=== PATIENT | female | born 1970 | race Caucasian/White ===

== ENCOUNTER 2019-06-24 17:03 | Emergency (ER) | payer OTHER ==
[~2019-06-24] VITALS: Ht 172.7 cm; Wt 83.5 kg
--- NOTE | ~2019-06-24 | EKG ---
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
[2019-06-24] MEDS ORDERED: LISINOPRIL-HCT1 EACH PO (17:32)
[2019-06-24] MEDS ORDERED: ADIPEX-P37.5 MG PO (17:32)
[2019-06-24] MEDS ORDERED: RIZATRIPTAN5 MG PO (17:32)
[2019-06-24] MEDS ORDERED: VITAMIN D22000 UNIT PO (17:32)
[2019-06-24 18:03] LABS: INFLUENZA A ANTIGEN Negative (Negative); INFLUENZA B ANTIGEN Negative (Negative)
[2019-06-24 19:30] LABS: ABSOLUTE BASOPHILS 0.1 thou/uL (0.0-0.2); ABSOLUTE EOSINOPHILS 0.1 thou/uL (0.0-0.7); ABSOLUTE LYMPHOCYTES 1.8 thou/uL (0.8-5.3); ABSOLUTE MONOCYTES 0.6 thou/uL (0.0-1.2); ABSOLUTE NEUTROPHILS 4.1 thou/uL (1.6-8.1); BASOPHILS 1.2 %; EOSINOPHILS 0.9 %; HEMATOCRIT 38.1 % (37.0-47.0); HEMOGLOBIN 12.8 gm/dL (12.0-15.0); MCHC 33.7 g/dL (28.0-37.0); MCV 89.1 fL (80.0-100.0); MONOCYTES 8.5 %; MPV 7.1 fl. (7.2-11.1); NUCLEATED RBCS 0 /100WBC; PLATELET COUNT* 324 thou/uL (150-400); POLYS 62.4 %; RBC 4.28 mil/uL (4.20-5.00); RDW-CV 13.7 % (10.5-14.5); WBC 6.6 thou/uL (4.0-11.0)
[2019-06-24 19:36] LABS: CALCIUM 9.2 mg/dL (8.5-10.1); CREATININE 0.7 mg/dL (0.6-1.3)
[2019-06-24 19:52] LABS: ALBUMIN 4.3 g/dL (3.4-5.0); TOTAL BILIRUBIN 0.4 mg/dL (<0.1-1.0); TOTAL PROTEIN 8.4 g/dL (6.4-8.2)
[2019-06-24] MEDS ORDERED: PHENERGAN 25 MG25 M1 PO (21:20)
[2019-06-24] MEDS ORDERED: AUGMENTIN 875-1 EACH PO (21:20)
[2019-06-24 21:38] VITALS: BP 123/83
== END 2019-06-24 21:41 | disposition home or self-care (01) ==
LOC: M.ERS 17:03
PROVIDERS: Nurse Practitioner Family
DX: J32.9 Chronic sinusitis, unspecified (principal); R11.2 Nausea with vomiting, unspecified; I10 Essential (primary) hypertension; G43.909 Migraine, unspecified, not intractable, without status migrainosus; M19.90 Unspecified osteoarthritis, unspecified site